=== PATIENT | male | born 1955 | race Caucasian/White ===

== ENCOUNTER → 2017-02-12 06:42 | Day surgery (SDC) | payer BC ==
[~2017-02-12 06:42] MED LIST: Acetaminophen TAB* 325 MG PO PRN; Buffered Lidocaine 1% SYR 3ML* 3 ML/SYR SYRINGE INTRADERM ONE; Cyclopentolate 1% OPTH.SOL* 2 ML BTL ONE; Flurbiprofen 0.03% OPTH.SOL* 2.5 ML BTL ONE; Lidocaine 1% MPF* 2 ML VIAL ONE; Midazolam* 1 MG/ML 5 ML VIAL (5 MG) ONE; Neomycin/Polymy/Dex OPHTH.OIN* 3.5 GM ONE; Phenylephrine 2.5% OPTH.SOL* 2 ML BTL ONE; Povidone Iodine 5% OPTH* 30 ML BTL ONE; Tetracaine 0.5% OPTH.SOL 4 ML* 1 DROP BTL ONE; acetaZOLAMIDE TAB* 250 MG ONE
[2017-02-12 08:41] VITALS: BP 112/67
--- NOTE | 2017-02-13 01:27 | OP ---
DATE OF OPERATION: 02/12/17- [facility] DATE OF : 59 SURGEON: Troy Zhu MD ANESTHESIOLOGIST: Wing Miller MD ANESTHESIA: Monitored anesthesia care. PRE-OP DIAGNOSIS: Cataract of the right eye. POST-OP DIAGNOSIS: Cataract of the right eye. OPERATIVE PROCEDURE: Cataract extraction of the right eye. IMPLANTS: SN60WF 6.0 diopter lens to the right eye. COMPLICATIONS: None. DESCRIPTION OF PROCEDURE: The patient was given phenylephrine 2.5% and cyclopentolate 1% eye drops in the operative eye in the preoperative area. The patient was brought to the operating room, where a time-out was taken to identify the correct patient, site, and side of surgery. The patient's right eye was prepped and draped in the usual sterile fashion with 5% Betadine. A second time- out was taken to verify the correct patient, site, and side of surgery and correct lens selection. A lid speculum was placed to the right eye. A 1-mm paracentesis blade was used to make a clear corneal incision in the superotemporal position. Preservative-free 1% lidocaine was injected into the anterior chamber. DuoVisc was then injected into the anterior chamber. A 2.75-mm keratome blade was used to make a triplanar incision at the inferotemporal position. A cystotome was used to initiate a capsulorrhexis, which was completed with Utrata forceps in a continuous and curvilinear manner. Hydrodissection of the lens was then performed with BSS on a cannula. The lens could be spun in the capsular bag. The phacoemulsification handpiece was then used with a wjsvso-zyj-oajwwjq technique to remove the nucleus in its entirety with 19.0 CDE. The I/A handpiece was then used to remove the residual cortical lens material. DuoVisc was then injected to inflate the capsular bag. The planned SN60WF 6.0 diopter lens was then injected into the capsular bag. The residual DuoVisc was then removed from the eye with the I/A hand-piece. The corneal incisions were the hydrated and no leaks occurred at physiologic pressure around 20 mmHg per palpation. The lid speculum was then removed and drapes removed. Maxitrol ointment was then placed to the surface of the operative eye. An adhesive patch and shield were then placed on the operative eye. The patient was taken to the postoperative area in stable condition. [id number]/[facility] #: [id number] TONIE
== END | disposition home or self-care (01) ==
LOC: OREAST 06:42
PROVIDERS: ATTEND Student in an Organized Health Care Education/Training Program
DX: H25.11 Age-related nuclear cataract, right eye (principal); Q14.2 Congenital malformation of optic disc; H43.813 Vitreous degeneration, bilateral; Z87.891 Personal history of nicotine dependence; J45.909 Unspecified asthma, uncomplicated
CPT/HCPCS: A9270-GY; J2250; V2632

== ENCOUNTER → 2017-02-26 06:40 | Day surgery (SDC) | payer BC ==
[~2017-02-26 06:40] MED LIST changes: -Buffered Lidocaine 1% SYR 3ML* 3 ML/SYR SYRINGE INTRADERM ONE; +Buffered Lidocaine 1% SYRIN* 3 ML/SYR SYRINGE INTRADERM ONE; +Midazolam* 1 MG/ML 2 ML VIAL (2 MG) ONE; -Midazolam* 1 MG/ML 5 ML VIAL (5 MG) ONE
[2017-02-26 08:33] VITALS: BP 109/63
--- NOTE | 2017-02-27 01:08 | OP ---
DATE OF OPERATION: 02/26/17 - [facility] DATE OF : 59 SURGEON: Troy Zhu MD ANESTHESIOLOGIST: Adam Carranza MD ANESTHESIA: Monitored anesthesia care. PRE-OP DIAGNOSIS: Cataract of the left eye. POST-OP DIAGNOSIS: Cataract of the left eye. OPERATIVE PROCEDURE: Cataract extraction left eye with intraocular lens implant. IMPLANTS: SN60WF 6.5 diopter lens to the left eye. COMPLICATIONS: None. DESCRIPTION OF PROCEDURE: The patient was given phenylephrine 2.5% and cyclopentolate 1% eye drops to the operative eye in the preoperative area. The patient was brought to the operating room where a time-out was taken to identify the correct patient, site, and side of surgery. The patient's left eye was prepped and draped in the usual sterile fashion with 5% Betadine. A second time-out was taken to verify the correct patient, site, and side of surgery, and correct lens selection. A lid speculum was placed to the left eye. A 1-mm paracentesis blade was used to make a clear corneal incision in the inferotemporal position. Preservative-free 1% lidocaine was injected into the anterior chamber. DuoVisc was then injected into the anterior chamber. A 2.75-mm keratome blade was used to make a triplanar incision at the superotemporal position. A cystotome was used to initiate a capsulorrhexis, which was completed with Utrata forceps in a continuous and curvilinear manner. Hydrodissection of the lens was then performed with BSS on a cannula. The lens could be spun in the capsular bag. The phacoemulsification handpiece was then used with a qjicel-ypd-mgwiooy technique to remove the nucleus in its entirety with 16.67 CDE. The I/A handpiece was then used to remove the residual cortical lens material. DuoVisc was then injected to inflate the capsular bag. The planned SN60WF 6.5 diopter lens was then injected into the capsular bag. The residual DuoVisc was then removed from the eye with the I/A hand-piece. The corneal incisions were then hydrated and no leaks occurred at physiologic pressure around 20 mmHg per palpation. The lid speculum was then removed and drapes removed. Maxitrol ointment was then placed to the surface of the operative eye. An adhesive patch and shield were then placed on the operative eye. The patient was taken to the postoperative area in stable condition. [id number]/[facility] #: [id number] TONIE
== END | disposition home or self-care (01) ==
LOC: OREAST 06:40
PROVIDERS: ATTEND Student in an Organized Health Care Education/Training Program
DX: H25.12 Age-related nuclear cataract, left eye (principal); Q14.2 Congenital malformation of optic disc; H43.813 Vitreous degeneration, bilateral; Z87.891 Personal history of nicotine dependence; J45.909 Unspecified asthma, uncomplicated; K21.9 Gastro-esophageal reflux disease without esophagitis
CPT/HCPCS: J2250; V2632

== ENCOUNTER 2024-07-04 05:36 | Observation (INO) ==
[~2024-07-04 05:36] MED LIST changes: -Acetaminophen TAB* 325 MG PO PRN; -Buffered Lidocaine 1% SYRIN* 3 ML/SYR SYRINGE INTRADERM ONE; -Cyclopentolate 1% OPTH.SOL* 2 ML BTL ONE; -Flurbiprofen 0.03% OPTH.SOL* 2.5 ML BTL ONE; -Lidocaine 1% MPF* 2 ML VIAL ONE; -Midazolam* 1 MG/ML 2 ML VIAL (2 MG) ONE; +Naloxone 0.4 mg VIAL 0.4 mg/ml 1 ml VIAL IV PRN; -Neomycin/Polymy/Dex OPHTH.OIN* 3.5 GM ONE; -Phenylephrine 2.5% OPTH.SOL* 2 ML BTL ONE; -Povidone Iodine 5% OPTH* 30 ML BTL ONE; -Tetracaine 0.5% OPTH.SOL 4 ML* 1 DROP BTL ONE; -acetaZOLAMIDE TAB* 250 MG ONE
[2024-07-04] MEDS ORDERED: ceFAZolin 2 GM in NS PREMIX 2 GM/100 ML BAG IVPB ONE (05:53)
[2024-07-04] MEDS ORDERED: Tranexamic Acid 1 GM/100ML BAG 2,000 MG/200 ML BAG IV ONE (05:53)
[2024-07-04 06:10] LABS: Rapid COVID-19 Molecular Undetected (Undetected)
[2024-07-04] MEDS ORDERED: ROPIVACAINE 5 MG/ML 30 ML BTL (0.5%) ONE (06:31)
[2024-07-04] MEDS ORDERED: Midazolam 5 mg/5 ml VIAL 1 mg/ml 5 ml VIAL (5 mg) ONE (07:01)
[2024-07-04] MEDS ORDERED: Lidocaine 2% PF 5 ML VIAL ONE (07:01)
[2024-07-04] MEDS ORDERED: Propofol 10 MG/ML 20 ML BTL ONE (07:01)
[2024-07-04] MEDS ORDERED: KETAMINE HCL 10 MG/ML 20 ml VIAL (200 MG) ONE ×2 (07:04→07:27)
[2024-07-04] MEDS ORDERED: Rocuronium 50 mg VIAL 10 mg/ml 5 ml VIAL (50 mg) ONE (07:27)
[2024-07-04] MEDS ORDERED: fentaNYL 250 mcg/5 ml 50 MCG/ML 5 ml VIAL (250 MCG) ONE (07:27)
[2024-07-04] MEDS ORDERED: HYDROmorphone 0.5 MG/0.5 ML SYRINGE ONE (08:44)
[2024-07-04] MEDS ORDERED: Phenylephrine 40 mcg/mL 10mL (400mcg) SYRINGE ONE (08:55)
[2024-07-04] MEDS ORDERED: Ondansetron 4 mg VIAL 2 MG/ML 2 ml VIAL ONE (08:58)
[2024-07-04] MEDS ORDERED: Dexamethasone IV 4 MG/ML VIAL 1 ml VIAL ONE (08:58)
[2024-07-04] MEDS ORDERED: Acetaminophen IV 1 GM/100ML 1,000 MG/100 ML BAG IV ONE (09:01)
[2024-07-04] MEDS: Buffered Lidocaine 1% SYRIN 1 ml INTRADERM ONE (10:11)
[2024-07-04] MEDS: Lactated Ringers 1000 ml BAG 1,000 ML IV SCH ×2 (10:11→12:37)
[2024-07-04] MEDS ORDERED: Ondansetron 4 mg VIAL 2 MG/ML 2 ml VIAL IV PRN (10:43)
[2024-07-04] MEDS ORDERED: Calcium Carb (TUMS) 500 mg CHEW TAB PO PRN (10:43)
[2024-07-04] MEDS ORDERED: Lactulose 30 ml UDC PO PRN (10:43)
[2024-07-04] MEDS ORDERED: Ondansetron ODT 4 mg TAB 4 MG TAB PO PRN (10:43)
[2024-07-04] MEDS ORDERED: Magnesium Hydroxide LIQ 30 ML UDC PO PRN (10:43)
[2024-07-04] MEDS ORDERED: HYDROmorphone 1 MG/1 ML SYRINGE ONE (10:47)
[2024-07-04] MEDS ORDERED: fentaNYL 100 mcg/2 ml 50 MCG/ML VIAL ONE (10:52)
[2024-07-04] MEDS: fentaNYL 100 mcg/2 ml 50 MCG/ML VIAL IV PRN (10:55)
[2024-07-04] MEDS: ceFAZolin 2 GM in NS PREMIX 2 GM/100 ML BAG IVPB SCH ×2 (12:52→16:26)
[2024-07-04] MEDS ORDERED: Albuterol HFA INHALER 8 gm MDI INH PRN (13:17)
[2024-07-04] MEDS: Magnesium Hydroxide LIQ 30 ML UDC PO SCH (23:41)
[2024-07-05 06:40] LABS: Creatinine, Serum 1.16 mg/dL (0.67-1.17); Potassium 4.1 mmol/L (3.5-5.0)
[2024-07-05 06:53] LABS: Hematocrit 31.9 % (38-53); Hemoglobin 10.1 g/dL (13.2-16.3); Mean Platelet Volume 7.4 fL (7.5-11.2); Platelet Count 230 10^3/uL (150-450)
[2024-07-05] MEDS: Vitamin THERAPEUTIC TAB PO SCH (08:10)
[2024-07-05 10:20] VITALS: BP 122/67
== END 2024-07-05 14:27 | disposition home or self-care (01) ==
LOC: SSU 05:36 → OR 05:36
PROVIDERS: ADMIT Orthopaedic Surgery Adult Reconstructive Orthopaedic Surgery; ATTEND Orthopaedic Surgery Adult Reconstructive Orthopaedic Surgery